=== PATIENT | male | born 1965 | race Caucasian/White ===

== ENCOUNTER 2021-05-10 07:31 | Outpatient (REF) | payer MEDICARE, SELFPAY ==
--- NOTE | ~2021-05-10 | XR_ITS ---
EXAMINATION: CR X-RAY KNEE STANDING BILATERAL, RIGHT KNEE 2 VIEW CLINICAL INFORMATION: Knee pain. COMPARISON: None TECHNIQUE: Standing AP views of the bilateral knees as well as 2 views of the right knee were obtained. FINDINGS: Mild femoral-tibial joint space narrowing is seen bilaterally greatest in the medial femoral-tibial compartments and greater on the right side. Mild chondrocalcinosis is seen on the right. The right patellofemoral joint space is unremarkable. There is no acute fracture or dislocation. There is no joint effusion. The soft tissues are unremarkable. XR/XR knee standing BI IMPRESSION: Mild degenerative joint changes bilaterally, right greater than left most consistent with osteoarthritis.
--- NOTE | ~2021-05-10 | XR_ITS ---
EXAMINATION: CR X-RAY KNEE STANDING BILATERAL, RIGHT KNEE 2 VIEW CLINICAL INFORMATION: Knee pain. COMPARISON: None TECHNIQUE: Standing AP views of the bilateral knees as well as 2 views of the right knee were obtained. FINDINGS: Mild femoral-tibial joint space narrowing is seen bilaterally greatest in the medial femoral-tibial compartments and greater on the right side. Mild chondrocalcinosis is seen on the right. The right patellofemoral joint space is unremarkable. There is no acute fracture or dislocation. There is no joint effusion. The soft tissues are unremarkable. XR/XR knee RT 2V IMPRESSION: Mild degenerative joint changes bilaterally, right greater than left most consistent with osteoarthritis.
== END 2021-05-10 07:32 | disposition home or self-care (01) ==
LOC: HO.HOSX 07:31
PROVIDERS: Visit Provider Physician Assistant
DX: M22.41 Chondromalacia patellae, right knee (principal)
CPT/HCPCS: 20610; 73560; 73565; 99202; J1040

== ENCOUNTER 2021-06-07 15:00 | Outpatient (RCR) | payer BC, SELFPAY ==
--- NOTE | 2021-05-27 09:58 | MHC.PT.EP ---
[facility] [place] Office [place] Office [place] Office [address] Emperatriz Gee [address] [phone] F: [phone] F: [phone] F: [phone] F: [phone] Physical Therapy Plan of Care Date of Evaluation: Date of Surgery: NA Diagnosis: CHONDROMALACIA PATELLAE R KNEE Assessment: Pt IS 55 YO M REFERRED TO PT FROM [facility] (MIA VILLATORO) WITH CHONDROMALACIA PATELLAE ON R. PRESENTS WITH 2 MONTH HX OF HYPEREXTENSION INCIDENT (JUST WALKING) WITH KNEE PAIN/SWELLING. Pt HAD INITIALLY INJURED HIS KNEE IN A SIMILAR WAY OVER THE SUMMER WITHOUT TREATMENT. PRESENTS TO PT WITH LIMITED R KNEE ROM (SIGNIF LIMITED EXTENSION), SOME SWELLING, PAIN AND LIMP. KNEE XRAY + FOR ARTHRITIS AND CHONDROMALACIA PATELLA. Pt WITH NEG SPECIAL TESTS FOR MENISCUS TEAR, HOWEVER, BECAUSE OF SIGNIF NGUYEN EXT, MAY BENEFIT FROM MRI TO R/O MENISCAL TEAR OR LIGAMENTOUS INJURY OF NOTE, Pt REPORTS HE CANNOT COME 2X/WK BECAUSE OF INSURANCE. HE WOULD LIKE TO COME 1X/WK OR 1X/2WKS WITH HOME PROGRAM Frequency and Duration: The patient will be seen 1X/WK X 3-4 WKS Short Term Goals: 1. FULL EXTENSION R KNEE 2. R KNEE FLEXION TO 130 DEGREES 3. Pt TO REPORT MINIMAL SWELLING NOTED R KNEE 4, NEGATIVE LIMP [facility] Goals: 1. I HEP WITH DC EX PLAN 2. DECREASED PAIN R KNEE AT LEAST 50% WITH ADLS 3. IMPROVED LEFI (40/80 AT SOC) Treatment Plan: Modalities to reduce pain, spasms and effusion. Manual therapy to restore motion and function. Therapeutic exercise to improve strength and flexibility. Neuromuscular re-education for posture and balance. Therapeutic activities to return to functional activities of daily living. Electronically signed by: KANDICE GOULD PT Please sign and return to therapist. Thank you for your referral.
--- NOTE | 2021-08-14 08:48 | MHC.PT.DC ---
[facility] [place] Office [place] Office [place] Office [address] Emperatriz Gee [address] [phone] F: [phone] F: [phone] F: [phone] F: [phone] Physical Therapy Discharge Report Diagnosis: CHONDROMALACIA PATELLAE R KNEE Date of Surgery: NA Date of Evaluation: 05/27/21 Date of Discharge: 08/14/21 Treatments to Date: 2 Cancellations to Date: No Shows to Date: Discharge Status: Improved Function Independent with HEP Patient Elected to Stop Discharge Summary: Pt LAST SEEN ON 06/07/21 (HAD INIT EVAL AND 1 VISIT). PER THAT NOTE'S ASSESSMENT IMPROVED ROM SINCE LAST SESSION, NEEDS CUES FOR HEEL STRIKE R WITH GT (IMPROVED PATTERN WHEN PERFORMS), REMAINS APREHENSIVE ABOUT FULL EXT IN PRONE (?MENISCUS INJURY, LIGAMENTOUS ISSUE/LOOSE BODY??) PER RECORD, SINCE THAT TIME, Pt HAS HAD MRI (+MENISCUS FRAYING, ARTHRITIC CHANGES) Pt HAS FOLLOWED UP WITH ORTHO, HAS PF BRACE. THIS PT CALLED Pt TO SPEAK WITH HIM. HE REPORTS DOING OK, CONTINUES WITH EXS, ICES PRN. REPORTS HE DOESNT FEEL HE NEEDS MORE PT AT THIS TIME, BUT WILL CALL [facility]THO FOR NEW SCRIPT IF HE THINKS FURTHER PT IS NEEDED IN THE FUTURE. Electronically signed by: KANDICE GOULD PT Please sign and return to therapist. Thank you for your referral.
== END 2021-08-14 08:49 | disposition home or self-care (01) ==
LOC: HO.PT 15:00
PROVIDERS: PCP Family Medicine; Visit Provider Physician Assistant
DX: M22.41 Chondromalacia patellae, right knee (principal)
CPT/HCPCS: 97110; 97140; 97162; 97535

== ENCOUNTER → 2021-06-28 08:19 | Outpatient (BNVA) | payer BC, SELFPAY | PROVIDERS: PCP Family Medicine; Visit Provider Physician Assistant ==

== ENCOUNTER 2021-07-15 08:05 | Outpatient (REF) | payer BC, SELFPAY ==
--- NOTE | ~2021-07-15 | MR_ITS ---
EXAMINATION: MR KNEE WITHOUT CONTRAST, RIGHT CLINICAL INFORMATION: Right knee pain. Pain with flexion and extension. Swelling. Evaluate for a meniscal tear. COMPARISON: Right knee radiographs dated 05/10/2021. TECHNIQUE: MRI of the knee without contrast was performed using routine sequences on a high-field scanner. FINDINGS: MENISCI: Medial Meniscus: Intact. Lateral Meniscus: Minimal inner margin fraying of the meniscal body and posterior horn. LIGAMENTS: Cruciate: Intact. Collateral: Intact. EXTENSOR MECHANISM: Superior and inferior patellar enthesophytes. Intact quadriceps and patellar tendons. ARTICULAR CARTILAGE/BONE: Patellofemoral Compartment: Medial patellar articular cartilage signal heterogeneity with partial-thickness loss. Central trochlear articular cartilage signal heterogeneity and partial-thickness fissuring. Tiny marginal osteophytes. Medial Compartment: Partial-thickness articular cartilage loss at the lateral aspect of the weightbearing medial femoral condyle. Tiny marginal osteophytes. Lateral Compartment: Normal. JOINT FLUID AND BURSAE: Small joint effusion. MUSCLES/TENDONS: Minimal edema within the proximal soleus and medial gastrocnemius muscles, consistent with minimal muscle strains. MR/MR knee RT wo con IMPRESSION: 1. Minimal inner margin fraying of the lateral meniscal body and posterior horn. 2. Mild patellofemoral and medial compartment osteoarthritis. Small joint effusion. 3. Minimal strains of the proximal soleus and medial gastrocnemius muscles.
== END 2021-07-15 08:06 | disposition home or self-care (01) ==
LOC: HO.MRI 08:05
PROVIDERS: Visit Provider Physician Assistant
DX: M23.306 Other meniscus derangements, unspecified meniscus, right knee (principal)
CPT/HCPCS: 73721

== ENCOUNTER → 2021-07-29 09:16 | Outpatient (BNVA) | payer BC, SELFPAY | PROVIDERS: PCP Family Medicine; Visit Provider Physician Assistant | DX: Z13.89 Encounter for screening for other disorder (principal) ==